=== PATIENT | female | born 1975 | race Caucasian/White ===

== ENCOUNTER 2017-01-12 13:25 | Emergency (ER) | payer OTHER ==
[~2017-01-12] VITALS: Ht 147.3 cm; Wt 49.0 kg
[~2017-01-12 13:25] MED LIST: ALLEGRA ALLERG180 M1 PO; AUGMENTIN 875-1 EACH PO; DILAUDID2 M1 PO; DILAUDID2 MG PO; FLAGYL 25O MG250 M1 PO; MEDROL4 M2 PO; MONTELUKAST SOD10 M1 PO; NAPROXEN500 M2 PO; ONDANSETRON HCL4 MG PO; PROPRANOLOL HCL80 M2 PO; SULFAMETHOXAZOL1 TA1 PO; TOPAMAX100 M1 PO; TOPIRAMATE50 M1 PO
[2017-01-12 13:36] VITALS: BP 160/88
[2017-01-12] MEDS ORDERED: MEDROL4 M2 PO (14:18)
[2017-01-12] MEDS ORDERED: AUGMENTIN 875-1 EACH PO (14:18)
--- NOTE | 2017-01-12 14:18 | ED INFLUENZA/URI COMPLAINT ---
History of Present Illness General Chief Complaint: General Adult Stated Complaint: CONGESTED x4DAYS Source: patient, old records Exam Limitations: no limitations Vital Signs & Intake/Output Vital Signs & Intake/Output Vital Signs Date Time Temp Pulse Resp B/P Pulse O2 O2 Flow FiO2 Ox Delivery Rate 01/12 1336 98.4 90 18 160/88 98 Room Air Allergies Coded Allergies: perfume (Severe, ANAPHYLAXIS FROM `FRAGRANCES' 02/04/16) adhesive tape (RASH 02/02/16) latex (RASH 02/02/16) Reconcile Medications Amoxicillin/Potassium Clav (Augmentin 875-125 Tablet) 875 MG-125 MG TABLET 1 TAB PO BID sinusitis Fexofenadine HCl (Nguyen Allergy) 180 MG TABLET 1 TAB PO DAILY ALLERGIES ( Reported) Methylprednisolone. (Medrol) 4 MG TAB.DS.PK 1 DP PO AD sinusitis 6 on day 1 then reduce by one tablet daily until gone Montelukast Sodium 10 MG TABLET 1 TAB PO DAILY ALLERGIES (Reported) Propranolol HCl (Propranolol HCl ER) 80 MG CAP.SA.24H 1 CAP PO DAILY HEADACHE (Reported) Topiramate 50 MG TABLET 1 TAB PO DAILY HEADACHE (Reported) Topiramate (Topamax) 100 MG TABLET 1 TAB PO QPM HEADACHE (Reported) Triage Note: PT COMPLAINS OF SINUS PRESSURE SINCE THURSDAY , ALSO COMPLAINS OF RAN OUT OF INDERAL AND SINGULAIR. Triage Nurses Notes Reviewed? yes : No Patient currently breastfeeds: No HPI: recurrent sinus infections, here w same, pressure in the frontal and maxillary sinus, nasal discharge, frontal headaches, mild sore throat and popping in ear. seen ENT regularly for this, requesting abx and medrol dose pack. Past History Travel History Traveled to [place] past 21 day No Medical History Any Pertinent Medical History? see below for history Neurological: migraine, seizure EENT: sinusitis Cardiovascular: NONE Respiratory: NONE Gastrointestinal: NONE Hepatic: NONE Renal: NONE Musculoskeletal: NONE Psychiatric: anxiety, PANIC ATTACKS Endocrine: NONE Blood Disorders: NONE Cancer(s): NONE SHEET METAL OPERATOR/Reproductive: NONE History of MRSA: No History of VRE: No History of CDIFF: No Surgical History Surgical History: appendectomy, , tonsillectomy removal of extra digit Psychosocial History Services at Home None What is your primary language Thai Tobacco Use: Never used ETOH Use: denies use Illicit Drug Use: denies illicit drug use Family History Family History, If Any: MOTHER, , Age 60+; Cause: Metastatic cancer. FH: brain cancer FH: breast cancer FH: hypertension FH: lung cancer FATHER, Age 60+. Colorectal cancer FH: hypertension Hx Contributory? No Review of Systems Review of Systems Constitutional: Reports: see HPI. EENTM: Reports: see HPI. Respiratory: Reports: no symptoms. Cardiovascular: Reports: no symptoms. GI: Reports: no symptoms. Genitourinary: Reports: no symptoms. Musculoskeletal: Reports: no symptoms. Skin: Reports: no symptoms. Neurological/Psychological: Reports: no symptoms. Hematologic/Endocrine: Reports: no symptoms. Immunologic/Allergic: Reports: no symptoms. All Other Systems: Reviewed and Negative Physical Exam Physical Exam General Appearance: well developed/nourished Head: atraumatic, normal appearance Eyes: Bilateral: normal appearance, PERRL, EOMI. Ears, Nose, Throat: normal ENT inspection, moist mucous membrane, hearing grossly normal, Tympanic normal, pharynx normal, nasal congestion Neck: normal inspection, supple, full range of motion, trachea midline Respiratory: normal breath sounds, chest non-tender, no respiratory distress Cardiovascular: regular rate/rhythm Gastrointestinal: normal bowel sounds, soft, non-tender, no organomegaly Back: normal inspection, normal range of motion Extremities: normal inspection Neurologic/Psych: no motor/sensory deficits, awake, alert, oriented x 3, normal mood/affect Skin: intact, normal color, warm/dry Lymphatic: no anterior cervical sanjay Core Measures Severe Sepsis Present: No Septic Shock Present: No Progress Differential Diagnosis: influenza, meningitis, neutropenia, otitis, pneumonia, pharyngitis, sinusitis Plan of Care: will tx with abx, ask pt to limit use of steroids in the future. rec fup with ent Initial ED EKG: none Departure Departure Disposition: HOME OR SELF CARE Condition: Stable Clinical Impression Primary Impression: Sinusitis Qualifiers: Sinusitis location: maxillary Chronicity: acute Recurrence: recurrent Qualified Code: J01.01 - Acute recurrent maxillary sinusitis Referrals: CORKY BANUELOS,TIGRE Beltran (PCP/Family) Additional Instructions: take antibiotics as directed. follow up with ENT if symptoms continue or you have recurrent sinus infections. Departure Forms: Customer Survey General Discharge Information Prescriptions: Current Visit Scripts Amoxicillin/Potassium Clav (Augmentin 875-125 Tablet) 1 TAB PO BID #20 TAB Methylprednisolone. (Medrol) 1 DP PO AD #1 DP 6 on day 1 then reduce by one tablet daily until gone
== END 2017-01-12 14:18 ==
LOC: ERH 13:25
DX: J32.9 Chronic sinusitis, unspecified (principal)

== ENCOUNTER 2017-04-05 13:16 | Emergency (ER) | payer OTHER ==
[~2017-04-05] VITALS: Ht 147.3 cm; Wt 48.1 kg
[2017-04-05 13:20] VITALS: BP 150/94
--- NOTE | 2017-04-05 13:27 | ED INFLUENZA/URI COMPLAINT ---
History of Present Illness General Chief Complaint: General Adult Stated Complaint: SINUS INFECTION Source: patient Exam Limitations: no limitations Vital Signs & Intake/Output Vital Signs & Intake/Output Vital Signs Date Time Temp Pulse Resp B/P B/P Pulse O2 O2 Flow FiO2 Mean Ox Delivery Rate 04/05 1320 97.6 80 18 150/94 99 Room Air Allergies Coded Allergies: codeine (Severe, GI UPSET 04/05/17) perfume (Severe, ANAPHYLAXIS FROM `FRAGRANCES' 02/04/16) adhesive tape (RASH 02/02/16) latex (RASH 02/02/16) Reconcile Medications Amoxicillin/Potassium Clav (Augmentin 875-125 Tablet) 875 MG-125 MG TABLET 1 TAB PO BID sinusitis Augmentin (Augmentin 500-125 Tablet) 500 MG-125 MG TABLET 1 TAB PO BID SINUSITIS Desloratadine (Clarinex) 5 MG TABLET 1 TAB PO DAILY ALLERGIES Fexofenadine HCl (Nguyen Allergy) 180 MG TABLET 1 TAB PO DAILY ALLERGIES ( Reported) Methylprednisolone. (Medrol) 4 MG TAB.DS.PK 1 DP PO AD sinusitis 6 on day 1 then reduce by one tablet daily until gone Montelukast Sodium 10 MG TABLET 1 TAB PO DAILY ALLERGIES (Reported) Propranolol HCl (Propranolol HCl ER) 80 MG CAP.SA.24H 1 CAP PO DAILY HEADACHE (Reported) Topiramate 50 MG TABLET 1 TAB PO DAILY HEADACHE (Reported) Topiramate (Topamax) 100 MG TABLET 1 TAB PO QPM HEADACHE (Reported) Triage Note: 41 Y/O FEMALE C/O NASAL CONGESTION X 10 DAYS, "I THINK I HAVE A SINUS INFECTION". Triage Nurses Notes Reviewed? yes Onset: Gradual Duration: constant Timing: recent history Severity: moderate Severity Numbers: 5 : No Patient currently breastfeeds: No HPI: Patient is a 41-year-old female with past medical history of seasonal allergies who presents emergency room with a 10 day history of sinus pressure and pain nasal congestion and headaches. Patient was seen and evaluated last week by her chronic specialist who prescribed an unknown antihistamine however patient has not taken this medication or picked it up. Patient states that head movements make worse. Denies any fever chills your pain blurred vision sore throat chest pain cough shortness of breath. Patient states that she cannot take nasal sprays (ISABEL HOLGUIN,MARIBEL) Past History Travel History Traveled to [place] past 21 day No Medical History Any Pertinent Medical History? see below for history Neurological: migraine, seizure EENT: sinusitis Cardiovascular: NONE Respiratory: NONE Gastrointestinal: NONE Hepatic: NONE Renal: NONE Musculoskeletal: NONE Psychiatric: anxiety, PANIC ATTACKS Endocrine: NONE Blood Disorders: NONE Cancer(s): NONE DIRECTOR MBA/Reproductive: NONE History of MRSA: No History of VRE: No History of CDIFF: No Surgical History Surgical History: appendectomy, , tonsillectomy removal of extra digit Psychosocial History Services at Home None What is your primary language Faroese Tobacco Use: Never used Family History Family History, If Any: MOTHER, , Age 60+; Cause: Metastatic cancer. FH: brain cancer FH: breast cancer FH: hypertension FH: lung cancer FATHER, Age 60+. Colorectal cancer FH: hypertension Hx Contributory? No (MARIBEL KOHLER) Review of Systems Review of Systems Constitutional: Reports: see HPI. Denies: fever. EENTM: Reports: see HPI, nasal congestion. Respiratory: Reports: no symptoms. Cardiovascular: Reports: no symptoms. GI: Reports: no symptoms. Genitourinary: Reports: no symptoms. Musculoskeletal: Reports: no symptoms. Skin: Reports: no symptoms. Neurological/Psychological: Reports: no symptoms. Hematologic/Endocrine: Reports: no symptoms. Immunologic/Allergic: Reports: no symptoms. All Other Systems: Reviewed and Negative (MARIBEL KOHLER) Physical Exam Physical Exam General Appearance: no apparent distress, alert Ears, Nose, Throat: moist mucous membrane, hearing grossly normal, Tympanic normal, pharynx normal, nasal congestion Comments: Well-developed well-nourished person in no acute distress HEENT: extraocular motion intact, no nystagmus. Pupils equally round and reactive to light and accommodation. Nose is atraumatic. External auditory canal and Tympanic membranes clear. Pharynx normal. No swelling or edema. Bilateral frontal maxillary sinus point tenderness Neck: Supple, no lymphadenopathy, normal range of motion without pain or tenderness Back: Nontender, no CVA tenderness. Cardiovascular: Regular rate and rhythms no murmurs rubs or gallops, normal JVP Respiratory: Chest nontender. No respiratory distress.breath sounds clear to auscultation bilaterally Abdomen: Soft, nontender nondistended, no appreciable organomegaly. Normal bowel sounds. No ascites Extremity: No edema, no calf tenderness to palpation, normal and equal pulses. Neuro: Alert oriented x3, motor sensory normal, Skin: No appreciable rash on exposed skin, skin is warm and dry. Psych: Mood and affect is normal, memory and judgment is normal. Core Measures Severe Sepsis Present: No Septic Shock Present: No (MARIBEL KOHLER) Progress Differential Diagnosis: influenza, meningitis, neutropenia, otitis, pneumonia, pharyngitis, sinusitis Plan of Care: Due to history of present illness and exam findings patient has concerns of sinusitis. Initial ED EKG: none (MARIBEL KOHLER) Departure Departure Disposition: HOME OR SELF CARE Condition: Stable Clinical Impression Primary Impression: Sinusitis Secondary Impressions: Allergic rhinitis Referrals: CORKY BANUELOS,TIGRE Beltran (PCP/Family) Additional Instructions: As discussed follow-up with your chronic specialist as directed. Begin the prescription of Augmentin as directed for the full course and begin the prescription or Clarinex for allergies. Begin [id number] Sudafed for congestion. prescription is waiting at [facility]. If symptoms worsen return to emergency room. Begin [id number] ibuprofen as directed for pain and inflammation Departure Forms: Customer Survey General Discharge Information Prescriptions: Current Visit Scripts Augmentin (Augmentin 500-125 Tablet) 1 TAB PO BID #20 TAB Desloratadine (Clarinex) 1 TAB PO DAILY #30 TAB (MARIBEL KOHLER) PA/RESEARCH FELLOW Co-Sign Statement Statement: ED Attending supervision documentation- [] I saw and evaluated the patient. I have also reviewed all the pertinent lab results and diagnostic results. I agree with the findings and the plan of care as documented in the PA's/RESEARCH FELLOW's documentation. [X] I have reviewed the ED Record and agree with the PA's/RESEARCH FELLOW's documentation. [] Additions or exceptions (if any) to the PAs/RESEARCH FELLOW's note and plan are summarized below: [] (GAVIN BANUELOS,MANNY Brown)
[2017-04-05] MEDS ORDERED: AUGMENTIN 500-1 EACH PO (13:38)
[2017-04-05] MEDS ORDERED: CLARINEX5 M1 PO (13:38)
== END 2017-04-05 13:44 ==
LOC: ERH 13:16
DX: J32.9 Chronic sinusitis, unspecified (principal); J30.9 Allergic rhinitis, unspecified